=== PATIENT | female | born 1940 | race Caucasian/White ===

== ENCOUNTER 2024-09-22 13:58 | Emergency (ER) | payer OTHER ==
[2024-09-22 14:20] VITALS: BP 104/64; PULSE 68; RESP 16; TEMP 97.3; BMI 26.0
[2024-09-22] MEDS ORDERED: PANTOPRAZOLE SODIUM 40 MG VIAL ONE (15:01)
[2024-09-22 15:05] LABS: ABSOLUTE IMMATURE GRANULOCYTES 0.27 x10^3/uL (0.0-0.031); BASOPHILS # 0.03 x10^3/uL (0.01-0.08); EOSINOPHIL % 0.7 % (0.7-5.8); EOSINOPHILS # 0.12 x10^3/uL (0.04-0.36); HEMATOCRIT 29.9 % (34.1-44.9); HEMOGLOBIN 9.4 g/dL (11.2-15.7); MCHC 31.4 g/dl (32.2-35.5); MEAN CELL VOLUME 93.7 fl (79.4-94.8); MEAN PLT VOLUME 10.5 fl (9.4-12.3); MONOCYTE % 8.2 % (4.7-12.5); PLATELET COUNT 318 x10^3/uL (182-369); RDW 18.1 % (12.5-17.0)
[2024-09-22] MEDS: PANTOPRAZOLE SODIUM 40 MG VIAL IVPUSH ONE (15:09)
[2024-09-22 15:13] LABS: INR 1.51 (0.83-1.09); PROTHROMBIN TIME (PATIENT) 16.6 SEC (9.7-13.0)
[2024-09-22 15:16] LABS: ACTIVATED PTT 26.4 SECONDS (25.2-36.5)
[2024-09-22 15:26] LABS: POTASSIUM 3.8 mmol/L (3.5-5.1)
[2024-09-22 15:28] LABS: CALCIUM 9.1 mg/dL (8.5-10.1)
[2024-09-22 15:29] LABS: ALBUMIN 2.7 g/dl (3.4-5.0); BLOOD UREA NITROGEN 29.6 mg/dL (7-18); MAGNESIUM 1.8 mg/dL (1.8-2.4)
[2024-09-22 15:32] LABS: CREATININE 0.9 mg/dL (0.55-1.3)
[2024-09-22 15:33] LABS: BILIRUBIN,TOTAL 0.4 mg/dL (0.2-1); TOT PROT 5.1 g/dl (6.4-8.2)
[2024-09-22] MEDS ORDERED: AZITHROMYCIN IVPB 500 MG/250 ML BAG IVPB ONE (16:12)
[2024-09-22] MEDS: AZITHROMYCIN IVPB 500 MG in DEXTROSE 5%-WATER - 250 ML IVPB ONE (16:21)
[2024-09-22 17:06] LABS: HCV DIAGNOSTIC IN-HOUSE W/RFLX NON-REACTIVE (NONREACTIVE)
[2024-09-22 17:08] LABS: HIV INTERPRETATION NEGATIVE (NEGATIVE)
== END 2024-09-22 21:23 ==
LOC: JER 13:58
PROC: 3E03329 Introduction of Other Anti-infective into Peripheral Vein, Percutaneous Approach (ICD-10-PCS; principal; 2024-09-22)
PROC: 3E033GC Introduction of Other Therapeutic Substance into Peripheral Vein, Percutaneous Approach (ICD-10-PCS; 2024-09-22)
DX: D64.9 Anemia, unspecified (principal); R53.1 Weakness; K92.1 Melena
CPT/HCPCS: 36415; 71045-TC-FY; 80053; 82272; 83605; 83615; 83690; 83735; 85025; 85610; 85730; 86803; 86850; 86900; 86901; 87389; 93005; 93010; 99285-25